=== PATIENT | female | born 1955 | race Caucasian/White ===

== ENCOUNTER 2022-07-31 11:23 | Day surgery (SDC) | payer MEDICARE, OTHER ==
[2022-07-27 11:38] VITALS: BMI 21.1
[~2022-07-31 11:23] MED LIST: SODIUM CHLORIDE 0.9% 1,000 ML IV SCH
[2022-07-31] MEDS ORDERED: SODIUM CHLORIDE 0.9% 500 ML 500 ML IV ONE (11:33)
[2022-07-31 11:57] VITALS: BP 156/82; RESP 16; TEMP 98.5
[2022-07-31 13:56] VITALS: PULSE 96
--- NOTE | 2022-07-31 18:29 | P.EPPROC ---
- EP Procedure Note Electrophysiology Procedure Note: Diagnosis Recurrent syncope Twelve-lead EKG shows sinus rhythm normal TN narrow QRS Tilt table test per protocol Baseline blood pressure 143/86. His mercury, Baseline heart rate 96 beats a minute Patient was tilted upright at an angle of 70 per protocol. Blood pressure remained stable. Minimal increase in heart rate However the patient felt very dizzy lightheaded nauseous and refused to continue the tilt table test and requested to be laid supine Impression Normal twelve-lead EKG No evidence for orthostatic hypertension Patient complained of being very lightheaded and dizzy through this extremely short tilt table test lasting only for 8 minutes. No significant change of heart rate. Normal blood pressure No evidence for neurocardiogenic syncope Patient refused to complete the test
== END 2022-07-31 13:52 | disposition home or self-care (01) ==
LOC: CATHEP 11:23
PROVIDERS: ATTEND Internal Medicine Clinical Cardiac Electrophysiology
DX: R55 Syncope and collapse (principal)
CPT/HCPCS: 93660

== ENCOUNTER → 2024-08-27 | Outpatient (CLI) | payer MEDICARE, OTHER ==
--- NOTE | 2024-08-27 15:14 | USB ---
Reason for Exam: Clinical finding. Patient History: Menarche at age 14. First Full-Term at age 18. Hysterectomy at age 31. Postmenopausal. 2022, Stereotactic Core Biopsy on the Right side. 1989, Bilateral Implants. Maternal aunt had breast cancer, age 70. Maternal cousin had breast cancer. Mother had breast cancer, age 35. Sister had breast cancer, age 55. Risk Values: Verito 5 year model risk: 8.7%. NCI Lifetime model risk: 24.5%. Technique: Method: Targeted. Prior Study Comparison: Bilateral Diagnostic Mammogram, [facility]. 08/30/2022 Bilateral Diagnostic Mammogram, [facility]. 12/06/2022 Right Diagnostic Mammogram, [facility]. Findings: The area of palpable concern of the right breast, the axilla of the right breast and the retroareolar of the right breast were scanned. Targeted ultrasound. Palpable abnormality 4:00 position 7 cm distance from nipple there is a 3 x 2 x 4 mm simple appearing thin-walled cyst present. At 4:00 position 6 cm distance from nipple there is larger 9 x 6 x 9 mm thin-walled cyst just below the dermal layer present. No suspicious solid or cystic mass or abnormal fluid collection is seen. Overall Assessment: Benign, BI-RAD 2 Management: Diagnostic Mammogram of both breasts in 1 year. Manage palpable clinically. Return for repeat imaging if the area is thought to enlarge or becomes painful. A clinical breast exam by your physician is recommended on an annual basis and results should be correlated with mammographic findings. This exam should not preclude additional follow-up of suspicious palpable abnormalities. Results were given to the patient verbally at the time of exam. [facility], , 08/27/2024 3:10 PM. Electronically signed and approved by: Surinder Alexandre M.D.
--- NOTE | 2024-09-01 11:45 | MM ---
Reason for Exam: Hx of breast cancer, conservation therapy. Last mammogram was performed 1 year(s) and 9 month(s) ago. Patient History: Menarche at age 14. First Full-Term at age 18. Hysterectomy at age 31. Postmenopausal. 2022, Stereotactic Core Biopsy on the Right side. 1989, Bilateral Implants. Maternal aunt had breast cancer, age 70. Maternal cousin had breast cancer. Mother had breast cancer, age 35. Sister had breast cancer, age 55. Risk Values: Verito 5 year model risk: 1.3%. NCI Lifetime model risk: 4.1%. Tissue Density: The breasts are heterogeneously dense, which may obscure small masses. Findings: Bilateral breast implants are redemonstrated. Benign-appearing round and Vascular calcifications bilaterally are redemonstrated. Surgical changes to the right breast and distortion are now present. No suspicious new mass or worrisome cluster of microcalcification in either breast. Overall Assessment: Incomplete: need additional imaging evaluation, BI-RAD 0 Management: Diagnostic Breast Ultrasound of the right breast. Enlarging palpable mass right breast. Results were given to the patient verbally at the time of exam. Patient should continue monthly self-breast exams. A clinical breast exam by your physician is recommended on an annual basis. This exam should not preclude additional follow-up of suspicious palpable abnormalities. Note on Verito scores and lifetime risk: 1. A Verito score greater than 3% is considered moderate risk. If this is the case, consider specialist referral to assess eligibility for a risk reducing agent. 2. If overall lifetime risk for the development of breast cancer is 20% or higher, the patient may qualify for future screening with alternating mammogram and breast MRI. [facility], , 08/27/2024 2:29 PM. Electronically signed and approved by: Surinder Alexandre M.D.
== END | disposition home or self-care (01) ==
LOC: RADMAMWWP 13:22
PROVIDERS: ATTEND Family Medicine
DX: C50.911 Malignant neoplasm of unspecified site of right female breast (principal); R92.333 Mammographic heterogeneous density, bilateral breasts; Z98.82 Breast implant status; R92.1 Mammographic calcification found on diagnostic imaging of breast; Z78.0 Asymptomatic menopausal state; Z80.3 Family history of malignant neoplasm of breast
CPT/HCPCS: 77066; 76642; G0279; 77062

== ENCOUNTER → 2024-08-27 | Outpatient (CLI) | payer MEDICARE, OTHER ==
--- NOTE | 2024-08-27 16:07 | US ---
EXAMINATION TYPE: US mass soft tissue chest/back DATE OF EXAM: 08/27/2024 COMPARISON: NONE CLINICAL INDICATION: Female, 69 years old with history of M79.89 SOFT TISSUE MASS; Lump on left lower back x months TECHNIQUE: Left lower back scanned FINDINGS AND IMPRESSION: Hypoechoic avascular area seen measuring 4.2 x 2.8 x 0.8cm in area of gladys rn. This is circumscribed oval, elongated, and located within the subcutaneous adipose layer. Findings suspected to represent a subcutaneous lipoma. Recommend 2-3 month follow-up ultrasound to re assess. If there is any growth or the area becomes symptomatic, consider surgical evaluation. [facility], Workstation: [id number], 08/27/2024 4:04 PM
== END | disposition home or self-care (01) ==
LOC: RADUSWWP 13:47
PROVIDERS: ATTEND Family Medicine
DX: M79.89 Other specified soft tissue disorders (principal)